=== PATIENT | male | born 1985 | race African-American/Black ===

== ENCOUNTER 2020-06-14 15:46 | Emergency (ER) | payer BC ==
[~2020-06-14] VITALS: Ht 180.3 cm; Wt 68.0 kg
[2020-06-14] MEDS ORDERED: PENICILLIN G BENZATHINE 600000 UNIT/1 ML IM STA (16:17)
--- NOTE | 2020-06-14 16:21 | Emergency Department Note ---
History of Present Illnes History of Present Illness Chief Complaint: General Medicine Complaints History of Present Illness This is a 34 year old male has a fianc and get routine test one week ago. Patient has a positive syphilis screen, sent here for treatment. Denies any rash, denies any penile . Historian: Patient Arrival Mode: Car Location: none Severity: mild Onset quality: gradual Duration (how long): week(s) (1) Progression: unchanged Chronicity: new Relieving factors: none Past Medical/Family History Physician Review I have reviewed the patient's past medical and family history. Any updates have been documented here. Past Medical History Recent Fever: No Clinical Suspicion of Infectio: No New/Unexplained Change in Ment: No Other Medical History: HERPES Past Surgical History: None Review of Systems Review of Systems Constitutional: Reports no symptoms EENTM: Reports no symptoms Cardiovascular: Reports no symptoms Respiratory: Reports no symptoms Gastrointestinal: Reports no symptoms Genitourinary: Reports no symptoms Musculoskeletal: Reports no symptoms Integumentary: Reports no symptoms Neurological: Reports no symptoms Psychological: Reports no symptoms Endocrine: Reports no symptoms Hematological/Lymphatic: Reports no symptoms Physical Exam Related Data Allergies: Coded Allergies: No Known Allergies (Unverified , 06/14/20) Physical Exam CONSTITUTIONAL Constitutional: Present well-developed, Present well-nourished HENT HENT: Present normocephalic, Present atraumatic, Present oropharynx clear/moist, Present nose normal HENT L/R: Present left ext ear normal, Present right ext ear normal EYES Eyes: Reports PERRL, Reports conjunctivae normal NECK Neck: Present ROM normal PULMONARY Pulmonary: Present effort normal, Present breath sounds normal CARDIOVASCULAR Cardiovascular: Present regular rhythm, Present heart sounds normal, Present capillary refill normal, Present normal rate GASTROINTESTINAL Abdominal: Present soft, Present nontender, Present bowel sounds normal GENITOURINARY Genitourinary: Present exam deferred SKIN Skin: Present warm, Present dry MUSCULOSKELETAL Musculoskeletal: Present ROM normal NEUROLOGICAL Neurological: Present alert, Present oriented x 3, Present no gross motor or sensory deficits PSYCHOLOGICAL Psychological: Present mood/affect normal, Present judgement normal Assessment & Plan Medical Decision Making MDM Patient's a 34-year-old male that is here after a positive syphilis screen, will treat with 2.4 million units of penicillin and follow up with primary care doctor. Assessment & Plan Final Impression: (1) Syphilis (acquired) Depart Disposition: HOME, SELF-CARE ASHLIE SOMMER MD Jun 14, 2020 16:20
[2020-06-14] MEDS ORDERED: PENICILLIN G BENZATHINE LA 1.2 MU TBX IM ONE (16:30)
== END 2020-06-14 20:06 | disposition home or self-care (01) ==
LOC: ER 16:48
DX: A53.9 Syphilis, unspecified (principal); B00.9 Herpesviral infection, unspecified
CPT/HCPCS: 99282; J0561